=== PATIENT | female | born 1940 ===

== ENCOUNTER 2019-08-10 09:32 | Emergency (ER) | payer OTHER ==
[~2019-08-10] VITALS: Ht 152.4 cm; Wt 60.8 kg
[2019-08-10] MEDS ORDERED: AZOR 10-20 MG1 EACH (09:43)
[2019-08-10] MEDS ORDERED: ZESTRIL20 MG (09:43)
[2019-08-10] MEDS ORDERED: METFORMIN HCL500 M2 (09:44)
[2019-08-10] MEDS ORDERED: VOLTAREN-XR100 MG PO (13:48)
[2019-08-10] MEDS ORDERED: ULTRAM50 MG PO (13:48)
== END 2019-08-10 14:02 | disposition home or self-care (01) ==
LOC: ER 09:32
DX: S52.592A Other fractures of lower end of left radius, initial encounter for closed fracture (principal); S40.012A Contusion of left shoulder, initial encounter; W01.198A Fall on same level from slipping, tripping and stumbling with subsequent striking against other object, initial encounter; Y93.E8 Activity, other personal hygiene; Y92.012 Bathroom of single-family (private) house as the place of occurrence of the external cause; Y99.8 Other external cause status